=== PATIENT | male | born 1975 | race African-American/Black ===

== ENCOUNTER 2018-07-07 04:11 | Emergency (ER) | payer SELFPAY ==
[2018-07-07] MEDS ORDERED: TERBUTALINE SULFATE INJ/PF 1 MG/1 ML SDV SUBCUT ONE (04:26)
--- NOTE | 2018-07-07 04:45 | ER Document Report ---
ED General - General Chief Complaint: Other Stated Complaint: ERRECTION LONG LASTING Time Seen by Provider: 07/07/18 04:26 Notes: Patient is a 42-year-old male presents with complaint of an erection lasting parking 6-1/2 hours. He has a previous history of priapism. He has seen a urologist in the past who recommended placing a stent to help prevent the previous some however the patient says he is just not gotten around to get this performed. No history of sickle cell anemia. He has had to receive aspiration and injection in the past to help relieve some of his previous symptoms. Other complaints at this time. TRAVEL OUTSIDE OF THE [place] IN LAST 30 DAYS: No - Related Data Allergies/Adverse Reactions: No Known Allergies Allergy (Verified 07/07/18 04:20) Past Medical History - Social History Smoking Status: Never Smoker Frequency of alcohol use: None Drug Abuse: None Family History: Reviewed & Not Pertinent Review of Systems - Review of Systems Notes: My Normal Review Basic REVIEW OF SYSTEMS: CONSTITUTIONAL : Denies fever, chills, or sweats. Denies recent illness. GASTROINTESTINAL: Denies abdominal pain. Denies nausea, vomiting, or diarrhea. GENITOURINARY: Previous some MUSCULOSKELETAL: Denies neck or back pain or joint pain or swelling. SKIN: Denies rash or skin lesions. ALL OTHER SYSTEMS REVIEWED AND NEGATIVE. Physical Exam - Vital signs Vitals: Temp Pulse Resp BP Pulse Ox 97.5 F 72 18 146/115 H 100 07/07/18 04:19 07/07/18 04:19 07/07/18 04:19 07/07/18 04:19 07/07/18 04:19 - Notes Notes: General Appearance: Well nourished, alert, cooperative, no acute distress, mild obvious discomfort. Vitals: reviewed, See vital signs table. Multiple: Patient has current erection. No signs of cyanosis to the penis. No abnormal lesions. Skin: warm, dry, appropriate color, no genital lesions. Neuro: speech clear, oriented x 3, normal affect, responds appropriately to questions. Course - Re-evaluation Re-evalutation: 07/07/18 05:18 Terbutaline did not help the patient's erection therefore I mixed 1 mg of 1: 1000 epi in a 100ml bag of NS to give a concentration of 1:100,000. I cleaned the patient's penis with chlorhexidine swab. Prior to this I did attempt a dorsal nerve block. Helped a little bit but did not completely relieve the patient's pain. Aspirated approximately 3-4 mL's of blood. I then injected 2.5 mL's of the epinephrine solution through a 22-gauge needle. at the 2'0clock position on the penile shaft. This resulted in resolution of the patient's priapism. Then wrapped the patient's penis and Coban. Patient tolerated procedure well without comp occasions. 07/07/18 05:33 He has not had any reoccurrence of priapism. He looks well and feels improved. I would refer him to a local urology as his previous urologist was in a different state. I encourage him return to ER anytime if he has recurrence of priapism or if he has any further concerns. Patient and agree with plan and patient will be discharged home. Dictation of this chart was performed using voice recognition software; therefore, there may be some unintended grammatical errors. - Vital Signs Vital signs: Temp Pulse Resp BP Pulse Ox 97.5 F 72 18 146/115 H 100 07/07/18 04:19 07/07/18 04:19 07/07/18 04:19 07/07/18 04:19 07/07/18 04:19 Procedures - Additional Procedures penile aspiraton and injection Notes: 07/07/18 05:22 Terbutaline did not help the patient's erection therefore I mixed 1 mg of 1: 1000 epi in a 100ml bag of NS to give a concentration of 1:100,000. I cleaned the patient's penis with chlorhexidine swab. Prior to this I did attempt a dorsal nerve block. Helped a little bit but did not completely relieve the patient's pain. Aspirated approximately 3-4 mL's of blood. I then injected 2.5 mL's of the epinephrine solution through a 22-gauge needle. at the 2'0clock position on the penile shaft. This resulted in resolution of the patient's priapism. Then wrapped the patient's penis and Coban. Patient tolerated procedure well without complications. Discharge - Discharge Clinical Impression: Priapism Condition: Good Disposition: HOME, SELF-CARE Additional Instructions: Please keep the wrap on your penis until tonight. Please return to the ER if you have recurrence of an erection lasting more than 30 minutes. Please follow up with the urologist to discuss the procedure to help prevent future Priapism. Please return to the ER if you have abnormal bruising to the penis, redness, or abnormal swelling. No sexual activity for at least 5 days. Forms: Return to Work Referrals: AMIRA STARK MD [NO LOCAL MD] - Follow up in 3-5 days (call office to make an appointment)
[2018-07-07] MEDS ORDERED: LIDOCAINE 2% INJ (20 MG/ML) 20 ML MDV INJ ONE (04:57)
[2018-07-07] MEDS ORDERED: EPINEPHRINE INJ/PF 1 MG/1 ML AMPULE INFIL ONE (04:58)
[2018-07-07 06:19] VITALS: BP 146/78
== END 2018-07-07 06:00 | disposition home or self-care (01) ==
LOC: ER 04:11
DX: N48.30 Priapism, unspecified (principal)
CPT/HCPCS: 99284; 54220; J3490; J0171; J3105

== ENCOUNTER 2019-02-22 18:30 | Emergency (ER) | payer SELFPAY ==
[2019-02-22] MEDS ORDERED: PENICILLIN V POTASSIUM 500 MG TABLET PO ONE (19:15)
[2019-02-22] MEDS ORDERED: IBUPROFEN 800 MG TABLET PO ONE (19:15)
--- NOTE | 2019-02-22 19:53 | ER Document Report ---
HPI - HPI Patient complains to provider of: Teeth and gum pain Time Seen by Provider: 02/22/19 19:15 Pain Level: 3 Context: Patient is otherwise healthy 43-year-old male presents the emergency department with right upper and right lower teeth and gum pain. Patient states he has generalized gum pain both upper and lower but is also stating generalized pain in tooth #3. Patient states "it just all hurts." Patient laughs at me when I asked him when the last time he went to the dentist was. Patient states he is unsure. Patient admits to smoking on a daily basis. Patient denies any fevers. Past Medical History - General Information source: Patient - Social History Smoking Status: Current Every Day Smoker Family History: Reviewed & Not Pertinent Patient has suicidal ideation: No Patient has homicidal ideation: No Renal/ Medical History: Denies: Hx Peritoneal Dialysis Vertical Provider Document - CONSTITUTIONAL Agree With Documented VS: Yes Notes: GENERAL: Alert, interacts well. No acute distress. HEAD: Normocephalic, atraumatic. EYES: Pupils equal, round, and reactive to light. Extraocular movements intact. ENT: Oral mucosa moist, tongue midline. Tooth in question is #3, obvious decay noted. Patient has very bad dentition throughout. Erythema noted gumline upper and lower right, left. No Ludewig's angina noted. NECK: Full range of motion. Supple. Trachea midline. LUNGS: Clear to auscultation bilaterally, no wheezes, rales, or rhonchi. No respiratory distress. HEART: Regular rate and rhythm. No murmur ABDOMEN: Soft, non-tender. Non-distended. Bowel sounds present in all 4 quadrants. EXTREMITIES: Moves all 4 extremities spontaneously. No edema, normal radial and dorsalis pedis pulses bilaterally. No cyanosis. BACK: no cervical, thoracic, lumbar midline tenderness. No saddle anesthesia, normal distal neurovascular exam. NEUROLOGICAL: Alert and oriented x3. Normal speech. cranial nerves II through XII grossly intact PSYCH: Normal affect, normal mood. SKIN: Warm, dry, normal turgor. No rashes or lesions noted. - INFECTION CONTROL TRAVEL OUTSIDE OF THE [place] IN LAST 30 DAYS: No Course - Re-evaluation Re-evalutation: 02/22/19 19:57 I discussed with patient need for close follow-up with a dentist. I discussed use of clindamycin as this may be a tooth infection or also a gum infection. Patient voices understanding is stable for discharge. This medical record was dictated with voice recognizing software. There may be grammatical, syntax errors that are unintended. - Vital Signs Vital signs: Temp Pulse Resp BP Pulse Ox 98.3 F 82 18 132/75 H 97 02/22/19 18:35 02/22/19 18:35 02/22/19 18:35 02/22/19 18:35 02/22/19 18:35 Discharge - Discharge Clinical Impression: Gingivitis, Tooth ache Condition: Stable Disposition: HOME, SELF-CARE Instructions: [facility], Clindamycin ([facility]), Toothache ([facility]) Additional Instructions: As we discussed you have been seen and treated in the emergency department for potential infection noted to your teeth and or gums. I am going to start you on antibiotic called clindamycin. Please make sure you take it as prescribed. Please also make sure you take [id number] Tylenol or Motrin for generalized pain. Please follow-up with 1 of the 3 clinics for which I have provided in this packet. Please also return to the emergency room should he have any other concerns. Prescriptions: Clindamycin HCl [Cleocin 150 mg Capsule] 450 mg PO Q8 7 Days capsule Forms: Return to Work Referrals: [facility] [Provider Group] - Follow up as needed [facility] [Provider Group] - Follow up as needed [facility] [Provider Group] - Follow up as needed
[2019-02-22 20:08] VITALS: BP 124/83
== END 2019-02-22 20:19 | disposition home or self-care (01) ==
LOC: ER 18:30
DX: K05.10 Chronic gingivitis, plaque induced (principal); K08.89 Other specified disorders of teeth and supporting structures; F17.210 Nicotine dependence, cigarettes, uncomplicated
CPT/HCPCS: 99282

== ENCOUNTER 2019-06-21 10:16 | Emergency (ER) | payer SELFPAY ==
[2019-06-21 10:21] VITALS: BP 130/90
--- NOTE | 2019-06-21 11:46 | ER Document Report ---
HPI - HPI Time Seen by Provider: 06/21/19 11:00 Pain Level: 3 Notes: Patient is a 43-year-old male presenting to the emergency department with abscess to his back near his left scapula. He states this has been there for several days. He states he and his tried to squeeze it. He denies any drainage from the area. Denies any fevers. Denies any history of previous abscesses or MRSA. - CONSTITUTIONAL Constitutional: DENIES: Fever, Chills - EENT EENT: DENIES: Sore Throat, Ear Pain, Eye problems - NEURO Neurology: DENIES: Headache, Weakness, Vision blurred, Dizzinesss / Vertigo - CARDIOVASCULAR Cardiovascular: DENIES: Chest pain - RESPIRATORY Respiratory: DENIES: Trouble Breathing, Coughing - GASTROINTESTINAL Gastrointestinal: DENIES: Abdominal Pain, Black / Bloody Stools - URINARY Urinary: DENIES: Dysuria, Urgency, Frequency - REPRODUCTIVE Reproductive: DENIES: : - MUSCULOSKELETAL Musculoskeletal: DENIES: Extremity pain Past Medical History - General Information source: Patient - Social History Smoking Status: Current Every Day Smoker Chew tobacco use (# tins/day): No Frequency of alcohol use: Social Drug Abuse: None Family History: Reviewed & Not Pertinent Patient has suicidal ideation: No Patient has homicidal ideation: No - Medical History Medical History: Negative Renal/ Medical History: Denies: Hx Peritoneal Dialysis Surgical Hx: Negative Vertical Provider Document - CONSTITUTIONAL Notes: PHYSICAL EXAMINATION: GENERAL: Well-appearing, well-nourished and in no acute distress. HEAD: Atraumatic, normocephalic. EYES: Pupils equal round extraocular movements intact, conjunctiva are normal. ENT: Nares patent NECK: Normal range of motion LUNGS: No respiratory distress Musculoskeletal: Normal range of motion NEUROLOGICAL: Normal speech, normal gait. PSYCH: Normal mood, normal affect. SKIN: Area of induration with fluctuance noted just left of the midline near the left scapula. - INFECTION CONTROL TRAVEL OUTSIDE OF THE [place] IN LAST 30 DAYS: No Course - Re-evaluation Re-evalutation: Abscess incised and drained, small amount of drainage obtained. Packing placed. Patient reports feels better. Patient tolerated procedure well, see procedure note. Patient given strict ED return precautions, patient instructed to remove packing within 48 hours, states she feels comfortable doing this at home. If they do not feel comfortable they were invited to return to the emergency department for packing removal and wound recheck. - Vital Signs Vital signs: Temp Pulse Resp BP Pulse Ox 98.4 F 79 16 130/90 H 97 06/21/19 10:20 06/21/19 10:20 06/21/19 10:20 06/21/19 10:20 06/21/19 10:20 Procedures - Incision and Drainage Left scapula Type: Simple Anesthetic type: 1% Lidocaine Blade size: 11 I&D procedure: Betadine prep applied Incision Method: Incision made by scalpel Discharge - Discharge Clinical Impression: Abscess Condition: Stable Disposition: HOME, SELF-CARE Additional Instructions: You are seen in the emergency department today with concern for possible abscess. This area was opened and drained. Packing was placed and must be removed within 48 hours. Please apply warm salt soaks to the area at least 4 times daily. Take the antibiotic as prescribed. Return to the emergency department for any new or worsening symptoms. Prescriptions: Sulfamethoxazole/Trimethoprim [Bactrim Ds Tablet] 1 tab PO BID #14 tablet Forms: Return to Work
== END 2019-06-21 11:53 | disposition home or self-care (01) ==
LOC: ER 10:16
PROC: 0H96XZZ Drainage of Back Skin, External Approach (ICD-10-PCS; principal; 2019-06-21)
DX: L02.212 Cutaneous abscess of back [any part, except buttock and flank] (principal); F17.200 Nicotine dependence, unspecified, uncomplicated
CPT/HCPCS: 99282; 10060; A6266

== ENCOUNTER 2020-06-12 10:16 | Emergency (ER) | payer SELFPAY ==
--- NOTE | 2020-06-12 11:21 | ER Document Report ---
ED Medical Screen (RME) - General Chief Complaint: Leg Pain Stated Complaint: LEG PAIN, PAINFUL KNOTS Time Seen by Provider: 06/12/20 11:11 Notes: Patient is a 44-year-old male who presents emergency department with a chief complaint of "bumps" to his left anterior thigh and right posterior thigh. Patient states that he has history of an abscess on his back before. Patient states that he has had his symptoms for the past month. Exam: Tenderness noted to left anterior thigh and right posterior thigh. I have greeted and performed a rapid initial assessment of this patient. A comprehensive ED assessment and evaluation of the patient, analysis of test results and completion of medical decision making process will be conducted by an additional ED providers. TRAVEL OUTSIDE OF THE [place] IN LAST 30 DAYS: No - Related Data Allergies/Adverse Reactions: No Known Allergies Allergy (Verified 06/12/20 11:10) Past Medical History - Social History Chew tobacco use (# tins/day): No Frequency of alcohol use: Social Drug Abuse: None Renal/ Medical History: Denies: Hx Peritoneal Dialysis Physical Exam - Vital signs Vitals: Temp Pulse Resp BP Pulse Ox 97.8 F 88 18 123/83 97 06/12/20 10:30 06/12/20 10:30 06/12/20 10:30 06/12/20 10:30 06/12/20 10:30 Course - Vital Signs Vital signs: Temp Pulse Resp BP Pulse Ox 97.8 F 88 18 123/83 97 06/12/20 10:30 06/12/20 10:30 06/12/20 10:30 06/12/20 10:30 06/12/20 10:30
[2020-06-12 13:02] LABS: ANION GAP 10 (5-19); BLOOD UREA NITROGEN 16 mg/dL (7-20); CARBON DIOXIDE 23 mmol/L (22-30); CHLORIDE 104 mmol/L (98-107); GLUCOSE 73 mg/dL (75-110); POTASSIUM 4.8 mmol/L (3.6-5.0)
--- NOTE | 2020-06-12 13:53 | RADIOLOGY REPORT (SQ) ---
EXAM DESCRIPTION: U/S EXTREMITY NONVASCULAR LTD IMAGES COMPLETED DATE/TIME: 06/12/2020 1:26 pm REASON FOR STUDY: eval "bumps" on bilateral legs COMPARISON: None. TECHNIQUE: Dynamic and static grayscale and color Doppler images of the palpable areas in the power lineman technician ior thighs were obtained. LIMITATIONS: None. FINDINGS: Per the foreign policy officer note the patient has palpable lumps in both thighs that are reddened a nd have been present for 1 month. The sites were evaluated with ultrasound and multiple well-circums cribed subcutaneous lesions that are hyperechoic relative to the musculature wire identified ; the la rgest lesion on the left side measures 3.8 x 3.3 x 1.7 cm and the largest lesion on the right side me asures 3.7 x 5.5 x 1.8 cm. There is no fluid collection or associated erythema/edema. IMPRESSION: Multiple well-circumscribed subcutaneous lesions that are hyperechoic relative to the mu sculature wire identified ; the largest lesion on the left side measures 3.8 x 3.3 x 1.7 cm and the l argest lesion on the right side measures 3.7 x 5.5 x 1.8 cm. There is no fluid collection or associat ed erythema/edema. Based on the echogenicity of the lesions the favored differential consideration i s lipomas. TECHNICAL DOCUMENTATION: JOB ID: [id number] 2010 [employer]- All Rights Reserved Reading location - IP/workstation name: [email or web address]
[2020-06-12 14:22] VITALS: BP 126/45
[2020-06-12 16:15] LABS: ABSOLUTE BASOPHILS # (AUTO) 0.1 10^3/uL (0.0-0.2); ABSOLUTE EOSINOPHILS # (AUTO) 0.2 10^3/uL (0.0-0.6); ABSOLUTE MONOCYTES (AUTO) 0.9 10^3/uL (0.1-1.4); ABSOLUTE NEUT (AUTO) 5.6 10^3/uL (1.7-8.2); EOSINOPHILS % (AUTO) 1.6 % (0-6); HEMATOCRIT 42.7 % (37.9-51.0); HEMOGLOBIN 14.3 g/dL (13.5-17.0); LYMPHOCYTES % (AUTO) 37.1 % (13-45); MEAN CORPUSCULAR HEMOGLOBIN 28.6 pg (27.0-33.4); MEAN CORPUSCULAR HGB CONC 33.4 g/dL (32.0-36.0); MEAN CORPUSCULAR VOLUME 86 fl (80-97); MONOCYTES % (AUTO) 8.6 % (3-13); PLATELET COUNT 364 10^3/uL (150-450); RED BLOOD COUNT 4.99 10^6/uL (4.35-5.55); RED CELL DISTRIBUTION WIDTH 13.7 % (11.5-14.0); SEGMENTED NEUTROPHILS % (AUTO) 51.7 % (42-78); TOTAL CELLS COUNTED % (AUTO) 100 %; WHITE BLOOD COUNT 10.8 10^3/uL (4.0-10.5)
--- NOTE | 2020-06-12 16:57 | ER Document Report ---
ED General - General Chief Complaint: Leg Pain Stated Complaint: LEG PAIN, PAINFUL KNOTS Time Seen by Provider: 06/12/20 11:11 Mode of Arrival: Ambulatory Information source: Patient Notes: Patient is a 44-year-old -Martiniquais male who comes in today chief complaint of 1 month of red sore lumps that have developed on both thighs and lower legs. Patient reports no history of trauma. No illness. He is having pain that is sometimes not totally relieved with ibuprofen. He does not have any known medical problems. He does smoke cigarettes. He does not have any antecedent illness. TRAVEL OUTSIDE OF THE [place] IN LAST 30 DAYS: No - Related Data Allergies/Adverse Reactions: No Known Allergies Allergy (Verified 06/12/20 11:10) Past Medical History - Social History Smoking Status: Current Every Day Smoker Chew tobacco use (# tins/day): No Frequency of alcohol use: Social Drug Abuse: None Family History: Reviewed & Not Pertinent Patient has homicidal ideation: No Renal/ Medical History: Denies: Hx Peritoneal Dialysis Review of Systems - Review of Systems Notes: Constitutional: No fevers. No chills. EENT: No eye redness. No eye pain. No ear pain. No sore throat. Cardiovascular: No chest pain. No palpitations. Respiratory: No cough. No shortness of breath. No respiratory distress. Gastrointestinal: No abdominal pain. No nausea, vomiting, or diarrhea. Genitourinary: Atraumatic. No lesions. No pain. No discharge. Musculoskeletal: Atraumatic. No swelling. No deformities. Skin: Positive subcutaneous lumps on bilateral lower extremities Lymphatic: No swollen lymph nodes. Neurologic: No headache. No syncope. Psychiatric: No suicidal or homicidal ideation. Physical Exam - Vital signs Vitals: Temp Pulse Resp BP Pulse Ox 97.8 F 88 18 123/83 97 06/12/20 10:30 06/12/20 10:30 06/12/20 10:30 06/12/20 10:30 06/12/20 10:30 - Notes Notes: General: Well-developed, well-nourished. In no acute distress. Non-toxic appearing. Cardiac: Well-perfused. Regular rate and rhythm. No murmurs, rubs, or gallops. Pulmonary: No respiratory distress. No cyanosis. Bilateral lung solitario are clear to auscultation. Abdominal: Non-distended. Non-rigid. Bowels sounds are present in all four quadrants. No guarding or rebound. HEENT: Head is atraumatic. Conjunctivae not reddened. No tearing. PERRL. EOMI. Orbits atraumatic. No periorbital swelling or erythema. Oropharynx is without erythema, swelling, or exudates. Neck: Supple. No adenopathy. No meningismus. Dermatologic: Warm with good turgor. No rash. Atraumatic. Multiple areas of redness in subcutaneous induration noted to bilateral thighs and tib-fib regions. There is no fluctuance noted. No abscess appreciated. Areas are warm and tender to palpation. Chest: Atraumatic. No chest wall tenderness to palpation. Musculoskeletal: Moves all extremities well. No range of motion deficits. no muscular or joint tenderness. No paraspinal muscle tenderness. no midline spinal tenderness or step-off. Genitourinary: Examination deferred Neurologic: No gross neurologic deficits. Psychiatric: Normal mood. Course - Re-evaluation Re-evalutation: 06/12/20 16:54 Patient has had lab work and a venous ultrasound at time of examination. Lab work is reassuring. Venous Doppler shows no evidence of deep vein thrombosis. Reports a possible differential of lipomas. I suspect based on the presentation that these are less likely to be lipomas and more likely to be erythema nodosum. I think patient would probably benefit from an outpatient work-up to see if there is a definitive underlying medical reason for the appearance of erythema nodosum. Given that he does not have any health insurance I [facility] We will start him on p.o. Toradol instead of ibuprofen. Of course if the lesions continue to get larger and worse, he may need to have a biopsy at some point - Vital Signs Vital signs: Temp Pulse Resp BP Pulse Ox 98.0 F 84 18 126/45 H 98 06/12/20 14:21 06/12/20 14:21 06/12/20 14:21 06/12/20 14:21 06/12/20 14:21 - Laboratory Result Diagrams: 06/12/20 15:44 06/12/20 11:58 Laboratory results interpreted by me: 06/12/20 06/12/20 11:58 15:44 WBC 10.8 H Sodium 136.8 L Glucose 73 L Discharge - Discharge Clinical Impression: Erythema nodosum Condition: Good Disposition: HOME, SELF-CARE Instructions: Growth or Mass, Pending Workup ([facility]) Additional Instructions: There is an area on this discharge paperwork that should give you information about the [facility]. It may be a good option if you do not have health insurance. Another option is Dr. Valdez who is an internal medicine doctor that might be able to do some additional work-up for you as an outpatient. He may however require payment. You can use the ketorolac instead of the ibuprofen. Be sure not to double up. You may use Tylenol as well as this is not metabolized in the same way. Prescriptions: Ketorolac Tromethamine [Toradol 10 mg Tablet] 10 mg PO Q6HP PRN 5 Days #20 tablet PRN Reason: Referrals: ALIS VALDEZ MD [COMMUNITY BASED STAFF] - Follow up in 3-5 days
== END 2020-06-12 17:09 | disposition home or self-care (01) ==
LOC: ER 10:16
DX: L52 Erythema nodosum (principal); F17.200 Nicotine dependence, unspecified, uncomplicated
CPT/HCPCS: 36415; 76882; 80048; 85025; 99284